=== PATIENT | male | born 1975 | race Caucasian/White ===

== ENCOUNTER 2017-07-27 07:09 | Emergency (ER) | payer BC, OTHER ==
[2017-07-27 07:30] VITALS: BP 143/85
--- NOTE | 2017-07-27 08:05 | UC ---
Skin Complaint HPI - HPI Summary HPI Summary: Painless, non-pruritic patches noted in suprapubic area yesterday, without associated fever or node swelling. Two weeks ago, had unprotected intercourse with a previous partner. Negative screening for HIV 2 years ago; no hx of STI's. - History of Current Complaint Chief Complaint: UCSkin Time Seen by Provider: 07/27/17 07:55 Stated Complaint: PERSONAL Hx Obtained From: Patient Onset/Duration: Sudden Onset Skin Exposure Onset/Duration: Weeks Ago - 2 Onset Severity: Mild Current Severity: Mild Pain Intensity: 0 Location: Discrete Character: Redness Aggravating Factor(s): Nothing Alleviating Factor(s): Nothing Associated Signs & Symptoms: Positive: Negative - Allergy/Home Medications Allergies/Adverse Reactions: Allergies Allergy/AdvReac Type Severity Reaction Status Date / Time No Known Allergies Allergy Verified 07/27/17 07:28 Review of Systems Constitutional: Negative Skin: Rash - skin patches as per HPI Eyes: Negative ENT: Negative Respiratory: Negative Cardiovascular: Other - reviewed BP elevated today; thinks due to anxiety of visit. Gastrointestinal: Negative Genitourinary: Negative Motor: Negative Neurovascular: Negative Musculoskeletal: Negative Neurological: Negative Psychological: Negative Is Patient Immunocompromised?: No All Other Systems Reviewed And Are Negative: Yes PMH/Surg Hx/FS Hx/Imm Hx Previously Healthy: Yes - overweight - Surgical History Surgical History: Yes Surgery Procedure, Year, and Place: open heart surgery at age 2 - Family History Known Family History: Positive: Other - parents living and healthy Negative: Cardiac Disease, Hypertension - Social History Occupation: Employed Full-time Lives: Alone Alcohol Use: Weekly Substance Use Type: None Smoking Status (MU): Former Smoker - Immunization History Most Recent Influenza Vaccination: has not had Physical Exam Triage Information Reviewed: Yes Appearance: Well-Appearing, No Pain Distress, Well-Nourished Vital Signs: Initial Vital Signs Temp 98.1 F 07/27/17 07:25 Pulse 99 07/27/17 07:25 Resp 16 07/27/17 07:25 BP 143/85 07/27/17 07:25 Pulse Ox 98 07/27/17 07:25 Vital Signs Reviewed: Yes Eyes: Positive: Conjunctiva Inflamed - mild injection (wears contacts) ENT: Positive: Pharynx normal Dental: Positive: Gross Decay/Caries @ - lower left molar Neck exam: Normal Neck: Positive: Supple, Nontender, No Lymphadenopathy Respiratory: Positive: Lungs clear, Normal breath sounds Cardiovascular: Positive: RRR, No Murmur Abdomen Description: Positive: Nontender, No Organomegaly, Other: - No inguinal adenopathy. Male Genital Exam: Positive: Normal Genitalia - circumcised male., No Hernia. Negative: Scrotum Tenderness (R), Scrotum Tenderness (L), Testicular Tenderness (R), Testicular Tenderness (L) Musculoskeletal Exam: Normal Neurological Exam: Normal Psychological Exam: Normal Skin Exam: Other - approximately 8 small erythematous patches in pubic hair, without associated pustules, each about 4 to 5 mm, associated with hair follicles. No tenderness, no vesicles or ulcers. Course/Dx - Course Course Of Treatment: Screen for STI's. Mild folliculitis, no treatment indicated. - Differential Diagnoses - Skin Complaint Differential Diagnoses: Urticaria - Diagnoses Provider Diagnoses: folliculitis. Discharge - Sign-Out/Discharge Documenting (check all that apply): Discharge/Admit/Transfer - Discharge Plan Condition: Stable Disposition: HOME Patient Education Materials: Folliculitis (ED) Referrals: No Primary Care Phys,NOPCP [Primary Care Provider] - Additional Instructions: Mild folliculitis will resolve without treatment. Screening for STI's will be complete in 2 to 3 days. You can call for results or have them sent to your primary care physician. We are screening for HIV, Chlamydia, gonorrhea and syphilis. Blood testing is not usually done to look for herpes virus. Ensure that you do a follow up blood pressure check because your pressure is elevated today. If treatment is indicated, it can be sent to a pharmacy near your work location. - Billing Disposition and Condition Condition: STABLE Disposition: HOME
== END 2017-07-27 08:31 | disposition home or self-care (01) ==
LOC: UCCORT 07:09
DX: L73.9 Follicular disorder, unspecified (principal); Z87.891 Personal history of nicotine dependence
CPT/HCPCS: 36415; 86592; 86703; 87491; 87591; 99211; G0463